=== PATIENT | male | born 1970 | race Caucasian/White ===

== ENCOUNTER 2025-01-30 10:40 | Outpatient (CLI) | payer BC, SELFPAY ==
--- OUTSIDE RECORDS SUMMARY | 2025-01-30 11:10 | XMS_ITS | Clinical Summary ---
Author Organization [facility] Address [address] [place] [address] Care Team Providers Care Railroad Car Repairman Name Role Phone Narinder Castro MD Primary Care Provider [phone] Allergies No known active allergies Medications No known medications Active Problems No known active problems Family History Medical History Relation Comments Diabetes Father Obesity Father Heart Disease Mother Obesity Mother Relation Status Comments Father Alive Mother Alive Social History Tobacco Use Types Packs/Day Years Used Date Smoking Tobacco: Never Smokeless Tobacco: Current Chew Alcohol Use Standard Drinks/Week Comments Yes 0 (1 standard drink = 0.6 oz pur e alcohol) beer, socially Sex and Gender Information Value Date Recorded Sex Assigned at Not on file Legal Sex Male 7:57 PM CDT Gender Identity Not on file Sexual Orientation Not on file Last Filed Vital Signs Vital Sign Reading Time Taken Comments Blood Pressure 138/80 10/17/2019 4:13 PM DIRECTOR OF MARKETING ANALYTICS Pulse 87 10/17/2019 4:13 PM DIRECTOR OF MARKETING ANALYTICS Temperature - - Respiratory Rate 18 10/17/2019 4:13 PM DIRECTOR OF MARKETING ANALYTICS Oxygen Saturation 96% 10/17/2019 4:13 PM DIRECTOR OF MARKETING ANALYTICS Inhaled Oxygen Concentration - - Weight 86.6 kg (191 lb) 10/17/2019 4:13 PM DIRECTOR OF MARKETING ANALYTICS Height 182.9 cm (6') 10/17/2019 4:13 PM DIRECTOR OF MARKETING ANALYTICS Body Mass Index 25.9 10/17/2019 4:13 PM DIRECTOR OF MARKETING ANALYTICS Plan of Treatment Health Maintenance Due Date Last Done Comments Colorectal Cancer Screening Colonoscopy (10 Years) 1970 Hepatitis C 1986 DTaP, Tdap and Td Vaccines ( 1 - Tdap) 1987 Hepatitis B Vaccines (1 of 3 - 19+ 3-dose series) 1987 Pneumococcal Vaccine: 50+ Ye ars (1 of 1 - PCV) 2018 Zoster Vaccines (1 of 2) 2018 Annual Physical 10/17/2020 10/17/2019 COVID-19 Vaccine (2023-2 5 season) 2024 Meningococcal B Vaccine Aged Out No l onger eligible based on patient's age to complete this topic Meningococcal Vaccine Aged Out No emmanuel efrain eligible based on patient's age to complete this topic RSV Immunizations Under 20 Months Aged Out No longer eligible based on patient's age to complete this topic Insurance Care Teams Railroad Car Repairman Relationship Specialty [place] [address] [place] [address] PCP - General FAMILY PRACTICE 10/17/19
[2025-01-30 20:14] LABS: Basophils Absolute Auto 0.1 K/mm3 (0.0-0.1); Basophils Percent Auto 1.2 % (0.2-1.2); Eosinophils Absolute Auto 0.5 K/mm3 (0-0.3); Eosinophils Percent Auto 7.1 % (0-4.4); Hematocrit 47.1 % (42.0-52.0); Hemoglobin 15.8 g/dL (14.0-18.0); Immature Granulocyte Absolute 0.02 K/mm3 (0.00-0.031); Immature Granulocyte Percent A 0.3 % (0-0.5); Lymphocytes Percent Auto 27.6 % (18.3-44.2); Mean Corpuscular HGB Conc 33.5 g/dl (32-36); Mean Corpuscular Hemoglobin 30.9 pg (26-34); Mean Corpuscular Volume 92.2 fl (80-100); Mean Platelet Volume 9.7 fl (7.4-10.4); Monocytes Absolute Auto 0.6 K/mm3 (0.1-0.6); Neutrophils Absolute Auto 4.2 K/mm3 (1.3-6.7); Neutrophils Percent Auto 55.8 % (45.5-73.1); Platelet Count Result 184 k/mm3 (150-375); Red Blood Count 5.11 M/mm3 (4.6-6.20); Red Cell Distribution Width 12.5 % (11.5-14.5); White Blood Count 7.6 K/mm3 (4.5-10.0)
[2025-01-30 22:29] LABS: Alanine Aminotransferase 29 U/L (6-50); Albumin Level 4.5 g/dL (3.5-5.1); Alkaline Phosphatase 70 U/L (38-126); Anion Gap 6 mmol/L (4-12); Aspartate Amino Transferase 53 U/L (17-59); Bilirubin,Total 0.5 mg/dL (0.2-1.3); Blood Urea Nitrogen 23 mg/dL (9-20); Calcium 9.9 mg/dL (8.4-10.2); Carbon Dioxide 32 mmol/L (22-30); Chloride 103 mmol/L (98-107); Cholesterol 165 mg/dL (0-200); Estimated Glomerular Filt Rate > 60; Glucose 85 mg/dL (65-110); HDL Direct 37 mg/dL; Potassium 4.9 mmol/L (3.4-5.0); Sodium 141 mmol/L (137-145); Triglycerides 204 mg/dL (<150)
[2025-01-30 22:40] LABS: LDL Cholesterol Direct 90 mg/dL
[2025-01-30 23:00] LABS: Prostate Specific Antigen 1.2 ng/mL (< OR = 4.0)
[2025-02-01 17:23] LABS: Beef IgE (F27) 0.47 kU/L; Lamb (F88) IgE 0.25 kU/L; Lamb Class 0/1; Pork Class 0/1
[2025-02-02 06:34] LABS: Galactose Alpha 1,3 IgE 0.12 kU/L (<0.10)
== END 2025-01-30 10:41 | disposition home or self-care (01) ==
LOC: ANHGOSHLAB 10:41
PROVIDERS: PCP Family Medicine; Visit Provider Family Medicine
DX: R13.10 Dysphagia, unspecified (principal)
CPT/HCPCS: 36415; 80053; 80061; 84153; 85025; 86008; G0103

== ENCOUNTER 2025-03-13 08:21 | Outpatient (CLI) | payer BC, SELFPAY ==
--- NOTE | 2025-03-13 08:32 | ECG_ITS ---
Test Date: 2025-03-13 08:47:31 Measurements Intervals Ewen Rate: 52 P: 22 NH: 172 QRS: 29 QRSD: 94 T: -15 QT: 415 QTc: 386 Interpretive Statements SINUS BRADYCARDIA NONSPECIFIC T-WAVE ABNORMALITY- INFERIOR LEADS BASELINE ARTIFACT- I, II, III, AVR, AVL, AVF BORDERLINE ECG No previous ECG available for comparison Electronically Signed On 03-13-2025 09:23:27 CDT by Calvin Mae D.O.
[2025-03-13 09:22] LABS: Hematocrit 46.9 % (42.0-52.0); Hemoglobin 15.9 g/dL (14.0-18.0)
[2025-03-13 09:55] LABS: Albumin Level 4.5 g/dL (3.5-5.1); Estimated Glomerular Filt Rate > 60; Glucose 88 mg/dL (65-110)
[2025-03-13 10:50] LABS: Urine Cotinine NEGATIVE
== END 2025-03-13 08:22 | disposition home or self-care (01) ==
LOC: ANHLAB 08:23
PROVIDERS: PCP Family Medicine; Visit Provider Orthopaedic Surgery
DX: M17.0 Bilateral primary osteoarthritis of knee (principal); R00.1 Bradycardia, unspecified; Z79.899 Other long term (current) drug therapy
CPT/HCPCS: 80307; 82040; 82565; 82947; 85014; 85018; 93005

== ENCOUNTER 2025-03-20 14:21 | Outpatient (CLI) | payer BC, SELFPAY ==
--- NOTE | ~2025-03-20 | CT_ITS ---
EXAMINATION: CT_LERTCWO_CT DATE: 03/20/2025 14:49 INDICATION: Right knee pain TECHNIQUE: High resolution computed tomography (CT) of the right lower extremity from the hip through the ankle was performed without intravenous contrast. Additional sagittal and coronal reconstruction s were performed. Automated exposure control and iterative reconstruction technique were employed. Th e dose-length product was 1943.16 mGy-cm. COMPARISON: Radiograph dated 01/30/2025 FINDINGS: Tricompartmental osteoarthritis at the right knee with severe joint space narrowing but appreciated o n the prior weightbearing imaging and with developing early remodeling along the anterior aspect medi al tibial plateau and subarticular cystlike changes along the central weightbearing medial femoral co ndyle. There is severe osteoarthritis with valgus angulation at the tibiotalar joint. Mild polyarticu lar osteoarthritis at the right hip and many of the main joints in the right foot. The second-fifth t oes are clawed with prominent dorsiflexion at the metatarsophalangeal joints. Small right ankle joint effusion with no effusion at the right hip or knee. There is 3.3 x 2.3 x 1.4 cm sclerotic lesion at the posterior medial aspect of the proximal metaphyse al region of the left tibia without evident lytic component, endosteal scalloping, periosteal reactio n or other aggressive features. Prostatomegaly measuring 4.7 x 3.6 cm. Bladder and visualized portions of bowels are unremarkable. No free fluid in the pelvis. No pathologically enlarged pelvic or inguinal lymphadenopathy. IMPRESSION: 1. Polyarticular osteoarthritis including severe medial compartment osteoarthritis at the right knee and severe osteoarthritis at the right ankle. 2. Indeterminate nonaggressive appearing 3.3 x 2.3 x 1.4 similar sclerotic lesion at the posterior me dial proximal metaphyseal region of the right tibia. Would favor a benign etiology such as fibrous dy splasia or chronic involuted nonossifying fibroma. Metastatic disease would be considered less likely both based upon appearance and location in the distal extremities. Recommend correlation with any pr ior outside imaging and if unavailable could consider bone scan for further evaluation. Reviewed, dictated and finalized at location A. IMPRESSION: 1. Polyarticular osteoarthritis including severe medial compartment osteoarthri tis at the right knee and severe osteoarthritis at the right ankle. 2. Indeterminate nonaggressive appearing 3.3 x 2.3 x 1.4 similar sclerotic lesi on at the posterior medial proximal metaphyseal region of the right tibia. Woul d favor a benign etiology such as fibrous dysplasia or chronic involuted nonoss ifying fibroma. Metastatic disease would be considered less likely both based u dandre appearance and location in the distal extremities. Recommend correlation wi th any prior outside imaging and if unavailable could consider bone scan for fu rther evaluation.
--- OUTSIDE RECORDS SUMMARY | 2025-03-20 14:29 | XMS_ITS | Clinical Summary ---
Author Organization [facility] Address [address] [place] [address] Care Team Providers Care Prep Manager Name Role Phone Narinder Castro MD Primary Care Provider [phone] [phone] Allergies No known active allergies Medications No [...] Comments Blood Pressure 138/80 10/17/2019 4:13 PM BARTACKER Pulse 87 10/17/2019 4:13 PM BARTACKER Temperature - - Respiratory Rate 18 10/17/2019 4:13 PM BARTACKER Oxygen Saturation 96% 10/17/2019 4:13 PM BARTACKER Inhaled Oxygen Concentration - - Weight 86.6 kg (191 lb) 10/17/2019 4:13 PM BARTACKER Height 182.9 cm (6') 10/17/2019 4:13 PM BARTACKER Body Mass Index 25.9 10/17/2019 4:13 PM BARTACKER Plan of Treatment Health Maintenance Due Date [...] to complete this topic Insurance Care Teams Prep Manager Relationship Specialty [place] [address] [place] [address] PCP - General FAMILY PRACTICE 10/17/19
== END 2025-03-20 14:22 | disposition home or self-care (01) ==
PROVIDERS: PCP Family Medicine; Visit Provider Orthopaedic Surgery
DX: M89.261 Other disorders of bone development and growth, right tibia (principal); M17.11 Unilateral primary osteoarthritis, right knee; M19.071 Primary osteoarthritis, right ankle and foot
CPT/HCPCS: 73700

== ENCOUNTER 2025-04-07 08:58 | Outpatient (CLI) | payer BC, SELFPAY ==
--- NOTE | ~2025-04-07 | NM_ITS ---
EXAMINATION: NM bone scan whole body DATE: 04/07/2025 14:42 INDICATION: Disorder of bone with indeterminate sclerotic lesion at the proximal right tibia TECHNIQUE: 24 mCi Tc-99m HDP was administered intravenously. Delayed whole-body scintigrams were obt ained. COMPARISON: Bilateral knee radiographs dated 01/30/[address] dated 03/20/2025 FINDINGS: Likely degenerative joint centered uptake at the bilateral wrists, bilateral acromioclavicular joints , left greater than right, the left elbow, bilateral knees most prominent at the medial compartments and at the proximal tibiofibular articulations, left greater than right and at the bilateral ankles a nd hindfeet, right greater than left. No abnormal uptake at the medial aspect of the proximal right t ibial metaphysis in the region of the previous noted sclerotic bone lesion. There is likely degenerat elisa mild increased uptake posteriorly in the spine, at the right side of the lower cervical spine, bi laterally at T6 and L5-S1 and on the right at T9 likely related to facet osteoarthritis and/or osteoa rthritis at the thoracic costovertebral articulations. No other atypical foci of abnormal uptake to s uggest metastatic disease. IMPRESSION: 1. No lesion suspicious for metastatic disease. Specifically no abnormal uptake at the site of the li rayne benign sclerotic lesion at the medial metaphyseal region of the proximal right tibia. 2. Scattered likely degenerative joint centered uptake in the spine and appendicular skeleton as deta iled above. Reviewed, dictated and finalized at location A. IMPRESSION: 1. No lesion suspicious for metastatic disease. Specifically no abnormal uptake at the site of the likely benign sclerotic lesion at the medial metaphyseal re gion of the proximal right tibia. 2. Scattered likely degenerative joint centered uptake in the spine and appendi cular skeleton as detailed above.
--- OUTSIDE RECORDS SUMMARY | 2025-04-07 09:08 | XMS_ITS | Clinical Summary ---
Author Organization [facility] Address [address] [place] [address] Care Team Providers Care Washtub Worker Name Role Phone Narinder Castro MD Primary Care Provider [phone] [phone] Allergies No known active allergies Medications No [...] Comments Blood Pressure 138/80 10/17/2019 4:13 PM ASSEMBLY LINE DRIVER Pulse 87 10/17/2019 4:13 PM ASSEMBLY LINE DRIVER Temperature - - Respiratory Rate 18 10/17/2019 4:13 PM ASSEMBLY LINE DRIVER Oxygen Saturation 96% 10/17/2019 4:13 PM ASSEMBLY LINE DRIVER Inhaled Oxygen Concentration - - Weight 86.6 kg (191 lb) 10/17/2019 4:13 PM ASSEMBLY LINE DRIVER Height 182.9 cm (6') 10/17/2019 4:13 PM ASSEMBLY LINE DRIVER Body Mass Index 25.9 10/17/2019 4:13 PM ASSEMBLY LINE DRIVER Plan of Treatment Health Maintenance Due Date [...] to complete this topic Insurance Care Teams Washtub Worker Relationship Specialty [place] [address] [place] [address] PCP - General FAMILY PRACTICE 10/17/19
== END 2025-04-07 08:59 | disposition home or self-care (01) ==
PROVIDERS: PCP Family Medicine; Visit Provider Orthopaedic Surgery
DX: M89.9 Disorder of bone, unspecified (principal)
CPT/HCPCS: 78306; A9503

== ENCOUNTER 2025-05-17 07:32 | Outpatient (CLI) | payer BC, SELFPAY ==
--- OUTSIDE RECORDS SUMMARY | 2025-05-17 07:59 | XMS_ITS | Clinical Summary ---
Author Organization [facility] Address [address] [place] [address] Care Team Providers Care Electronic Commerce Specialist Name Role Phone Narinder Castro MD Primary Care Provider [phone] Allergies No known active allergies Medications No [...] Comments Blood Pressure 138/80 10/17/2019 4:13 PM LOADER MALT HOUSE Pulse 87 10/17/2019 4:13 PM LOADER MALT HOUSE Temperature - - Respiratory Rate 18 10/17/2019 4:13 PM LOADER MALT HOUSE Oxygen Saturation 96% 10/17/2019 4:13 PM LOADER MALT HOUSE Inhaled Oxygen Concentration - - Weight 86.6 kg (191 lb) 10/17/2019 4:13 PM LOADER MALT HOUSE Height 182.9 cm (6') 10/17/2019 4:13 PM LOADER MALT HOUSE Body Mass Index 25.9 10/17/2019 4:13 PM LOADER MALT HOUSE Plan of Treatment Health Maintenance Due Date [...] 10/17/2020 10/17/2019 COVID-19 Vaccine (2023-2 5 season) 2025 Meningococcal B Vaccine Aged Out No l onger eligible based on patient's age to complete this topic Meningococcal Vaccine Aged Out No emmanuel efrain eligible based on patient's age to complete this topic RSV Immunizations Under 20 Months Aged Out No longer eligible based on patient's age to complete this topic Insurance Care Teams Electronic Commerce Specialist Relationship Specialty [place] [address] [place] [address] PCP - General FAMILY PRACTICE 10/17/19
[2025-05-17 09:39] LABS: Hematocrit 44.1 % (42.0-52.0); Hemoglobin 15.1 g/dL (14.0-18.0); Immature Granulocyte Percent A 0.3 % (0-0.5); Lymphocytes Absolute Auto 2.31 K/mm3 (0.9-3.2); Mean Corpuscular HGB Conc 34.2 g/dl (32-36); Mean Corpuscular Hemoglobin 31.1 pg (26-34); Mean Corpuscular Volume 90.9 fl (80-100); Nucleated Red Blood Cells Absolute Auto 0.000 K/mm3 (0.0-0.012); Nucleated Red Blood Cells Perc 0.0 % (0.0-0.2); Platelet Count Result 195 k/mm3 (150-375); Red Blood Count 4.85 M/mm3 (4.6-6.20); White Blood Count 6.9 K/mm3 (4.5-10.0)
[2025-05-17 09:52] LABS: Hemoglobin A1C 5.1 % (<5.7)
[2025-05-17 09:56] LABS: Albumin Level 4.7 g/dL (3.5-5.1); Estimated Glomerular Filt Rate > 60; Glucose 97 mg/dL (65-110)
[2025-05-17 10:43] LABS: MRSA (PCR) NOT DETECTED (NOT DETECTE)
== END 2025-05-17 07:33 | disposition home or self-care (01) ==
LOC: ANHSURGERY 07:56
PROVIDERS: PCP Family Medicine; Visit Provider Orthopaedic Surgery
DX: M17.11 Unilateral primary osteoarthritis, right knee (principal); Z01.818 Encounter for other preprocedural examination
CPT/HCPCS: 80307; 82040; 82565; 82947; 83036; 85025; 86850; 86900; 86901; 87641

== ENCOUNTER 2025-05-30 00:37 | Day surgery (SDC) | payer BC, SELFPAY ==
--- NOTE | 2025-05-17 07:59 | PC.NURSE ---
Report to the Outpatient Waiting Room, entrance under the green pavilion located off [facility], at time __11:30 AM on date _05/30/25 . Planned Procedure Time: __1:30 PM .? Time changes happen often and if your time is changed the preop area will call you the afternoon before. - You and your visitor will be asked to self-screen and do not enter if you have any COVID symptoms. Please call surgeon if you need to reschedule. - A mask is optional within the hospital at this time. Patients may have clear liquids (water, carbonated beverages, clear teas, apple juice) until 3 hours prior to surgery ( 10:30 AM) with a maximum of 20 ounces. - No food from midnight until time of surgery and no smoking, or chewing tobacco (or any form of nicotine). No chewing gum, candy or mints. - Take only the following medications with a SIP of water on the morning of surgery: NONE DO NOT STOP ANY OF YOUR OTHER PRESCRIPTION MEDICATIONS PRIOR TO SURGERY EXCEPT THE FOLLOWING Hold all vitamins and supplements for 3 days per anesthesiologist.LAST DOSE 05/26/25 Medications to discontinue per physician ____HOLD ASPIRIN AND IBUPROFEN 7 DAYS PRE OP PER DR RENAE Date to take last dose__05/22/25 Please no make-up, nail malaysian, hairspray, perfume, deodorant, or body powder the day of surgery.? No jewelry (including any body piercings) or valuables the day of surgery, leave them at home.? Please take a shower or bath the night before, or the morning of, surgery with an antibacterial soap.? Wear comfortable, loose fitting clothing.? Children are encouraged to wear pajamas. - Jewelry must be removed prior to entering the operating room.? Rings and piercings that are not removed may be cut off. - The hospital will not accept responsibility for valuables.? - Please leave all valuables, including medications, at home the day of surgery. If you are going home after surgery, a licensed driver/sales workers must drive you home.? - NO public transportation without another adult if you receive anesthesia. - We recommend that an adult stay with you for 24 hours following discharge. - We also recommend that you do not drive, make important decision, drink alcoholic beverages, or take any drugs that were not prescribed by your health care provider for at least 24 hours after your discharge time. For Pediatric surgeries, we recommend two adults accompany the child home. Follow any additional instructions given to you from your surgeon. VERBAL AND WRITTEN instructions given to __PATIENT_AND LUIGI and asked if any additional questions and then verbalized understanding. Patient advised to call surgeon office or pre surgery nurse liaison [phone] if any additional questions.
[2025-05-17 08:54] VITALS: BP 119/73; PULSE 51; RESP 18; TEMP 36.6; O2SAT 99; BMI 27.3
[2025-05-30] VITALS (10 sets, daily range): BP systolic 126–158; BP diastolic 74–90; PULSE 52–74; RESP 10–18; TEMP 35.9–36.9; O2SAT 95–100
--- NOTE | ~2025-05-30 | XR_ITS ---
EXAM/ PROCEDURE: [id number] - 05/30/2025 15:20 CDT HISTORY: 55 years old Male with RIGHT CUSTOM TKA, POST-OP COMPARISON: None available TECHNIQUE: Two view(s) FINDINGS/ IMPRESSION: Right knee arthroplasty. Intact hardware and no loosening. 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 Postsurgical subcutaneous emphysema and soft tissue swelling. Reviewed, dictated and finalized at location N.
--- OUTSIDE RECORDS SUMMARY | 2025-05-30 00:39 | XMS_ITS | Clinical Summary ---
Author Organization [facility] Address [address] [place] [address] Care Team Providers Care Head Start Coordinator Name Role Phone Narinder Castro MD Primary Care Provider [phone] [phone] Allergies No known active allergies Medications No [...] Comments Blood Pressure 138/80 10/17/2019 4:13 PM NIGHT TIME NANNY Pulse 87 10/17/2019 4:13 PM NIGHT TIME NANNY Temperature - - Respiratory Rate 18 10/17/2019 4:13 PM NIGHT TIME NANNY Oxygen Saturation 96% 10/17/2019 4:13 PM NIGHT TIME NANNY Inhaled Oxygen Concentration - - Weight 86.6 kg (191 lb) 10/17/2019 4:13 PM NIGHT TIME NANNY Height 182.9 cm (6') 10/17/2019 4:13 PM NIGHT TIME NANNY Body Mass Index 25.9 10/17/2019 4:13 PM NIGHT TIME NANNY Plan of Treatment Health Maintenance Due Date [...] patient's age to complete this topic Insurance * Guarantor: Sky Arguelles Account Type Relation to Patient Date of Phone Billing Address Personal/Family Self [address] [place] [address] Care Teams Head Start Coordinator Relationship Specialty [place] [address] [place] [address] PCP - General FAMILY PRACTICE 10/17/19
--- NOTE | 2025-05-30 07:13 | WPDHPUPDATE1 ---
History and Physical Update Update Date/Time: 05/30/25 07:13 History and Physical has been reviewed, including an updated exam of the patient. There are NO changes in the patient's condition. Risks, benefits, and alternatives have been discussed and questions answered. Patient agrees to proceed with procedure.
[2025-05-30] MEDS: ACETAMINOPHEN 500 MG TABLET 1000 MG PO (12:00)
[2025-05-30] MEDS: LACTATED RINGERS 1,000 ML 30 ML IV CONT ×2 (12:10→15:15)
[2025-05-30] MEDS: TRANEXAMIC ACID 1,000MG/ISO100 1,000 MG/100 ML BAG 200 MG IVPB (12:12)
--- NOTE | 2025-05-30 12:37 | WPDANESEPPF ---
Anes - Initial Pre Proc Eval Procedure: Operation Date: 05/30/25 13:30 Proposed Procedures p Right Custom Total Knee Arthroplasty - Edouard Hernandez MD Date/Time: 05/30/25 12:37 Surgeon: Edouard Hernandez MD Pre Op Diagnosis: primary oa right knee Patient Data Age: 55 Gender: M Height: 1.8 m Weight: 87.5 kg Last Vital Signs Temp 36.9 C 05/30/25 11:30 Pulse 52 L 05/30/25 11:30 Resp 16 05/30/25 11:30 BP 129/80 05/30/25 11:30 Pulse Ox 99 05/30/25 11:30 O2 Del Method Room Air 05/30/25 11:30 Allergies Allergy/AdvReac Type Severity Reaction Status Date / Time No Known Allergies Allergy Verified 05/30/25 12:25 Home Medications ?Medication ?Instructions ?Recorded ?Confirmed ?Type ascorbic acid (vitamin C) 1,000 mg 1 g PO DAILY 05/17/25 05/30/25 History tablet (C-1000) aspirin 81 mg capsule 81 mg PO DAILY 05/17/25 05/30/25 History glucosam 750 mg-chondroi 100 4 tablet PO DAILY 05/17/25 05/30/25 History mg-hyalur 1.65 mg-CF borate 108 mg tablet (Fototwics) ibuprofen 200 mg tablet (Advil) 1,000 mg PO DAILY 05/17/25 05/30/25 History eqksmdhe-fme-tkivw acid 200 1 tablet PO DAILY 05/17/25 05/30/25 History mcg-vit K1 60 mcg-lycopene 600 mcg tablet (Men's Multivitamin) omeprazole 20 mg capsule,delayed 20 mg PO PRN PRN heartburn 05/17/25 05/17/25 History release aspirin 81 mg tablet,delayed 81 mg PO BID 14 days #28 tabs 05/30/25 Rx release oxycodone-acetaminophen 5 mg-325 1 - 2 tablet PO Q4-6H PRN pain 7 05/30/25 Rx mg tablet days #30 tabs prednisone 5 mg tablet 5 mg PO DAILY 3 weeks #21 tabs 05/30/25 Rx Patient hx anesthesia problems: none Family hx anesthesia problems: none Results Review: All pre-operative results and documents have been reviewed as part of the pre-operative evaluation. PENDING SALE TO [facility] Past Medical History Medical History (Updated 05/30/25 @ 12:38 by Iker Solorzano CRNA) GERD (gastroesophageal reflux disease) Surgical History Surgical History S/P cervical spinal fusion Social History Social History Smoking status: Never smoker Smokeless tobacco user: chewing tobacco Additional smoking assessment comments: 02/03/25 QUIT CHEWING TOBACCO. DENIES ANY FORM OF TOBACCO USE Alcohol intake: current Drinks per week: 2 Substance use: never Do You Feel Safe in your Home?: No Lack of Transportation: No Lack of Food: Never True Current Housing: I Have Housing Concerned About Future Housing: No Difficulty Paying Gas/Electric Bills: No Difficulty Paying for Meds: No Currently Unemployed: No Education: High School Diploma/GED Difficulty w/ Childcare or Family Care: No Living arrangements: with family Spiritual care concerns: No Anes - Eval Final PreProcedure Day of Procedure 05/30/25 12:37 Patient weight: overweight Heart: regular rate and rhythm Lungs: clear to auscultation Airway: Mallampati scale class II Neurological: alert and oriented Last oral intake: >/= 8 hours ASA classification: II Emergent: no Anesthetic plan: proceed Anesthesia type and monitoring: general LMA and standard monitoring Results Review: All pre-operative results and documents have been reviewed as part of the pre-operative evaluation. Informed Consent: The patient's anesthetic plan and its attendant risks and benefits were discussed with the patient/family/POA. Questions were solicited and answers provided to the satisfaction of the patient/family/POA.
[2025-05-30] MEDS: ceFAZolin 2 GM in SODIUM CHLORIDE 0.9% IV 50 ML 100 ML IVPB ×2 (13:01→20:35)
[2025-05-30] MEDS: SODIUM CHLORIDE 0.9% IV 37.7 ML, MORPHINE SULFATE INJ (*CRX) 2 MG, ROPivacaine HCL 1% 2... INFILTRATE (13:29)
[2025-05-30] MEDS: TRANEXAMIC ACID 1,000 MG/10 ML AMPUL 1000 MG IV PUSH (14:45)
--- NOTE | 2025-05-30 14:57 | W.PM.PROC2 ---
Procedure Note - Detailed Date of Procedure 05/30/25 Pre-op Diagnosis Right knee degenerative arthritis. Post-op Diagnosis Same Procedure Performed Custom total knee arthroplasty, right. Surgeon Edouard Hernandez MD Wet Process Assistant Head Miller Patricia Duffy PA-C Anesthesia General Findings Severe medial side wear and pseudolaxity. Partial PCL release. Description of Procedure Preoperative antibiotics were given. The limb was prepped and draped in the usual sterile fashion with a well-padded tourniquet high on the thigh. The limb was exsanguinated and the tourniquet inflated to 300 mmHg during exposure and cementation. A longitudinal incision was created just medial to the patella. A trivector approach to the knee was performed. Arthrotomy was taken down through the joint capsule. No significant releases were initially taken. The femur was exposed and the F1 jig was applied. The coring tool was used to remove the cartilage for the F2 jig to sit flush with the bone. The jig was pinned and the distal cut carefully taken. Caliper measurements confirmed appropriate bony resections according to the preoperative templated plan. The F4 cutting jig for the femur was applied, at the standard rotation. The AP and anterior chamfer cuts were taken. The F5 jig was applied and the posterior chamfer cuts were taken. The tibia was prepared using the T1 jig, after removing cartilage for the jig contact points. Proper alignment was checked with the alignment arron. The tibia was cut using the T1u guide. Gap balancing was performed. Gap measurements were taken and the knee was trialed. Excellent alignment and soft tissue balancing was confirmed. The posterior cruciate ligament was recessed along the proximal tibia. The patella tracked optimally. A lateral facetectomy was performed. Meniscal remnants were removed. The trial components were assembled. Excellent range of motion and proper soft tissue balancing were confirmed throughout the full range of motion. Patellar tracking was excellent. The knee was copiously irrigated periodically throughout the procedure. The real implants were cemented into position. Excess cement was carefully removed. The wound was closed in layers with interrupted #1 Vicryl suture, 2-0 strata fix suture, 0 strata fix suture, 2-0 strata fix suture. Steri-Strips placed on the skin with the knee flexed. Sterile bulky dressing applied. The patient was brought to the recovery room in stable condition. There were no complications. Implants Conformis Custom total knee arthroplasty. Cemented. Cruciate retaining. 8B insert. Estimated Blood Loss 50 Drains No Complications No immediate complications Condition Stable Disposition PACU [facility] Billing Surgery - Charge Forward: Surgery Billing
[2025-05-30] MEDS: fentaNYL CITRATE INJ (*CRX) 100 MCG/2 ML VIAL 25 MCG IV PUSH ×4 (15:25→15:53)
[2025-05-30] MEDS: ONDANSETRON INJ 4 MG/2 ML VIAL IV PUSH (15:26)
[2025-05-30] MEDS: SODIUM CHLORIDE 0.9% IV 1,000 ML 125 ML IV CONT (16:54)
[2025-05-30] MEDS: SENNA/DOCUSATE SODIUM TABLET 2 TAB PO (17:41)
[2025-05-30] MEDS: oxyCODONE/ACETAMINOPHEN (*CRX) 10-325 MG TABLET 1 TAB PO (17:41)
[2025-05-30] MEDS: ACETAMINOPHEN 325 MG TABLET 650 MG PO ×2 (17:42→23:15)
[2025-05-30] MEDS: ASPIRIN 81 MG ENTERIC TABLET PO (20:34)
[2025-05-30] MEDS: FAMOTIDINE 20 MG TABLET PO (20:34)
[2025-05-31 02:16] VITALS: BP 111/61; PULSE 54; RESP 16; TEMP 36.1; O2SAT 94
[2025-05-31 05:09] LABS: Hematocrit 38.7 % (42.0-52.0); Hemoglobin 13.5 g/dL (14.0-18.0); Immature Granulocyte Percent A 0.7 % (0-0.5); Lymphocytes Absolute Auto 0.98 K/mm3 (0.9-3.2); Mean Corpuscular HGB Conc 34.9 g/dl (32-36); Mean Corpuscular Hemoglobin 31.5 pg (26-34); Mean Corpuscular Volume 90.2 fl (80-100); Nucleated Red Blood Cells Absolute Auto 0.000 K/mm3 (0.0-0.012); Nucleated Red Blood Cells Perc 0.0 % (0.0-0.2); Platelet Count Result 149 k/mm3 (150-375); Red Blood Count 4.29 M/mm3 (4.6-6.20); White Blood Count 13.7 K/mm3 (4.5-10.0)
[2025-05-31] MEDS: ACETAMINOPHEN 325 MG TABLET 650 MG PO ×2 (05:09→12:14)
[2025-05-31] MEDS: ceFAZolin 2 GM in SODIUM CHLORIDE 0.9% IV 50 ML 100 ML IVPB ×2 (05:09→12:15)
[2025-05-31 05:27] LABS: Anion Gap 8 mmol/L (4-12); Blood Urea Nitrogen 16 mg/dL (9-20); Calcium 8.8 mg/dL (8.4-10.2); Carbon Dioxide 23 mmol/L (22-30); Chloride 104 mmol/L (98-107); Estimated CRCL calculation 100 ml/min; Estimated Glomerular Filt Rate > 60; Glucose 121 mg/dL (65-110); Potassium 4.8 mmol/L (3.4-5.0); Sodium 135 mmol/L (137-145)
[2025-05-31 05:49] VITALS: BP 119/69; PULSE 55; RESP 18; TEMP 36.3; O2SAT 97
[2025-05-31] MEDS: FAMOTIDINE 20 MG TABLET PO (09:15)
[2025-05-31] MEDS: SENNA/DOCUSATE SODIUM TABLET 2 TAB PO (09:15)
[2025-05-31] MEDS: ASPIRIN 81 MG ENTERIC TABLET PO (09:15)
[2025-05-31] MEDS: oxyCODONE/ACETAMINOPHEN (*CRX) 5-325 MG TABLET 1 TABLET PO (12:17)
--- NOTE | 2025-05-31 13:46 | P.PNAN_ITS ---
Anes - Prog Note Post-Op Date/Time: 05/31/25 13:46 Cardiovascular status: normal Respiratory status: normal Airway patency: baseline Mental status: baseline Post-Op hydration status: normal Vital Signs: Last Vital Signs Temp 36.3 C L 05/31/25 05:49 Pulse 55 L 05/31/25 05:49 Resp 18 05/31/25 05:49 BP 119/69 05/31/25 05:49 Pulse Ox 97 05/31/25 05:49 O2 Del Method Room Air 05/31/25 11:34 O2 Flow Rate 8 05/30/25 15:30 Pain Score (VAS): 4 I/O: Intake & Output 05/30/25 05/31/25 05/31/25 23:59 07:59 15:59 Intake Total 440 1050 360 Balance 440 1050 360 Laboratory Tests 05/31/25 04:53 05/31/25 04:53 05/31/25 04:53 WBC 13.7 H RBC 4.29 L Hgb 13.5 L Hct 38.7 L MCV 90.2 MCH 31.5 MCHC 34.9 RDW 12.2 Plt Count 149 L MPV 9.1 Immature Gran % (Auto) 0.7 H Neut % (Auto) 85.1 H Lymph % (Auto) 7.2 L [place] % (Auto) 6.7 Eos % (Auto) 0.1 Baso % (Auto) 0.2 Lymph # (Auto) 0.98 [place] # (Auto) 0.9 H Eos # (Auto) 0.0 Baso # (Auto) 0.0 Abs Immat Gran (auto) 0.09 H Absolute Neuts (auto) 11.7 H Absolute Nucleated RBC 0.000 Nucleated RBC % 0.0 Sodium 135 L Potassium 4.8 Chloride 104 Carbon Dioxide 23 Anion Gap 8 BUN 16 Creatinine 0.75 Estim Creat Clear Calc 100 Estimated GFR > 60 Glucose 121 H Calcium 8.8 Patient Feedback: Patient satisfied with anesthetic care.
== END 2025-05-31 13:10 | disposition home or self-care (01) ==
LOC: ANHSURGERY 11:19 → ANH3MED 17:18
PROVIDERS: Physician Assistant Surgical; PCP Family Medicine; Visit Provider Orthopaedic Surgery
PROC: (CPT 27447; principal; 2025-05-30 13:30)
DX: M17.11 Unilateral primary osteoarthritis, right knee (principal); K21.9 Gastro-esophageal reflux disease without esophagitis; Z79.891 Long term (current) use of opiate analgesic; Z79.52 Long term (current) use of systemic steroids; Z79.82 Long term (current) use of aspirin; Z79.1 Long term (current) use of non-steroidal anti-inflammatories (NSAID); Z98.1 Arthrodesis status; Z87.891 Personal history of nicotine dependence
CPT/HCPCS: 27447; 36415; 73560; 80048; 85025; 97110; 97161; 97165; J0690; A9270; C1713; C1776; J0166; J1100; J1885; J2270; J2405; J2704; J2795; J3010; J7030; J7120; J7512

== ENCOUNTER 2025-08-15 15:02 | Outpatient (CLI) | payer BC, SELFPAY ==
--- NOTE | ~2025-08-15 | CT_ITS ---
EXAMINATION: CT_LELTCWO_CT DATE: 08/15/2025 15:48 INDICATION: Left knee osteoarthritis for preoperative planning TECHNIQUE: High resolution computed tomography (CT) of the left lower extremity from the hip through the ankle was performed without intravenous contrast. Additional sagittal and coronal reconstructions were performed. Automated exposure control and iterative reconstruction technique were employed. The dose- length product was 2254.81 mGy-cm. COMPARISON: Left knee radiographs dated 07/24/2025 FINDINGS: Mild left genu varum with severe joint space narrowing in medial compartment with secondary early remodeling of the articular surface at the medial tibial plateau. There is additional mild joint space narrowing in the medial and patellofemoral compartments of the left knee with moderate-sized marginal osteophytes in all 3 compartments. No left knee joint effusion. Partially visualized right total knee arthroplasty. Additional polyarticular osteoarthritis, mild at the left hip and sacroiliac joint and at the left ankle and multiple joints in the left foot. More prominent osteoarthritis at the partially visualized right ankle joint with subarticular cystlike changes along the articular surface of the medial malleolus. Severe lower lumbar spondylosis. No evident fractures or osteonecrosis. No pathologically enlarged left pelvic or inguinal lymphadenopathy. IMPRESSION: 1. Severe medial compartment predominant tricompartmental osteoarthritis at the left knee. Reviewed, dictated and finalized at location A. [facility]
[2025-08-15 15:20] LABS: Hematocrit 44.6 % (42.0-52.0); Hemoglobin 15.4 g/dL (14.0-18.0)
[2025-08-15 15:37] LABS: Albumin Level 4.6 g/dL (3.5-5.1); Estimated Glomerular Filt Rate > 60; Glucose 97 mg/dL (65-110)
--- OUTSIDE RECORDS SUMMARY | 2025-08-15 16:23 | XMS_ITS | Clinical Summary ---
Author Organization [facility] Address [address] [place] [id number] Care Team Providers Care Radiology Tech Name Role Phone Narinder Castro MD Primary Care Provider [phone] Allergies No known active allergies Medications doxycycline hyclate (VIBRAMYCIN) 100 MG capsuleIndication s:Spider bite wound, undetermined intent, initial encounter Take 1 capsule (100 mg total) by mouth 2 (two) times daily for 10 days. 20 capsule 5 08/10/20 25 predniSONE (DELTASONE) 20 MG tabletIndications :Spider bite wound, undetermined intent, initial encounter Take 1 tablet (20 mg total) by mouth daily for 5 days. 5 tablet 5 08/05/20 25 Active Problems Problem Noted Date Diagnosed Date Arthritis of both knees 07/31/2025 Dysphagia 07/31/2025 Encounters Date Type Department Care Team Description 07/31/2025 1:20 PM SOLUTION SPEC Office Visit [facility] Family [facility] Internal Medicine [address] [id number] Nilsa Lino PA Insect Bite (Spot on lower left side of hip. Possible spider bite ) 07/31/2025 Travel from Last 3 Months Immunizations Immunization Administration Dates Next Due Tdap (Adacel) 07/31/2025 Tdap (Generic) 02/17/2014 Family History Medical History Relation Comments Diabetes Father Obesity Father Heart Disease Mother Obesity Mother Relation Status Comments Father Alive Mother Alive Social History Tobacco Use Types Packs/Day Years Used Date Smoking Tobacco: Never Smokeless Tobacco: Current Chew Tobacco Cessation:Ready to Q uit: No; Counseling Given: Yes Alcohol Use Standard Drinks/Week Comments Yes 0 (1 standard drink = 0.6 oz pur e alcohol) beer, socially Sex and Gender Information Value Date Recorded Sex Assigned at Not on file Legal Sex Male 7:57 PM CDT Gender Identity Not on file Sexual Orientation Not on file Last Filed Vital Signs Vital Sign Reading Time Taken Comments Blood Pressure 128/78 07/31/2025 1:28 PM SOLUTION SPEC Pulse 73 07/31/2025 1:25 PM SOLUTION SPEC Temperature 36.9 C (98.4 F) 07/31/2025 1:25 PM SOLUTION SPEC Respiratory Rate 18 07/31/2025 1:25 PM SOLUTION SPEC Oxygen Saturation 96% 07/31/2025 1:25 PM SOLUTION SPEC Inhaled Oxygen Concentration - - Weight 93.9 kg (207 lb) 07/31/2025 1:25 PM SOLUTION SPEC Height 182.9 cm (6') 07/31/2025 1:25 PM SOLUTION SPEC Body Mass Index 28.07 07/31/2025 1:25 PM SOLUTION SPEC Plan of Treatment Health Maintenance Due Date Last Done Comments Colorectal Cancer Screening Colonoscopy (10 Years) 1968 Hepatitis C 1986 Hepatitis B Vaccines (1 of 3 - 19+ 3-dose series) 1987 Pneumococcal Vaccine: 50+ Years (1 of 1 - PCV) 2018 Zoster Vaccines (1 of 2) 2018 Annual Physical 10/17/2020 10/17/2019 PHQ-2 (Physician [place]) 09/14/2024 COVID-19 Vaccine ( - 2024-2 6 season) 2025 Influenza Adult (#1) 2025 DTaP, Tdap and Td Vaccines ( 3 - Td or Tdap) 07/31/2035 07/31/2025, 02/17/2014 Hepatitis A Vaccines Aged Out No long er eligible based on patient's age to complete this topic Meningococcal B Vaccine Aged Out No l onger eligible based on patient's age to complete this topic Meningococcal Vaccine Aged Out No emmanuel efrain eligible based on patient's age to complete this topic RSV Immunizations Under 20 Months Aged Out No longer eligible b ased on patient's age to complete this topic Insurance [facility] [address] [address] Care Teams Radiology Tech Relationship Specialty [place] [id number] [place] [address] PCP - General FAMILY PRACTICE 10/17/19
== END 2025-08-15 15:03 | disposition home or self-care (01) ==
LOC: ANHIMG 15:03
PROVIDERS: PCP Family Medicine; Visit Provider Orthopaedic Surgery
DX: M17.12 Unilateral primary osteoarthritis, left knee (principal); Z01.818 Encounter for other preprocedural examination; Z79.899 Other long term (current) drug therapy
CPT/HCPCS: 73700; 80307; 82040; 82565; 82947; 85014; 85018